=== PATIENT | female | born 1980 | race Caucasian/White ===

== ENCOUNTER 2024-08-01 14:00 | Inpatient (IN) | payer BC, OTHER ==
[~2024-08-01] VITALS: Ht 162.6 cm; Wt 87.7 kg
--- NOTE | 2024-08-01 14:38 | ECG ---
[facility] Test Date: 2024-08-01 Test Time: 14:13:32 Pat Name: ANUPAMA GOYAL Department: C Room: Gender: F Medical Imaging Technologist: FAZAL : 1980 Requested By: ARMAAN FLOWER Order Number: [id number] Reading MD: Measurements Intervals [place] Rate: 86 P: 56 [place]: 141 QRS: 47 QRSD: 96 T: 33 QT: 384 QTc: 460 Interpretive Statements Sinus rhythm Please click the below link to view image of tracing.
--- NOTE | 2024-08-01 15:01 | ED.PDOC ---
HPI Comments This is a 44-year-old female who comes in with chief complaint of chest pain. The patient states that this is the 1st time that she has had chest pain in the past but she has been having some palpitations. There has been no nausea, vomiting or diarrhea. She states that the chest pain is substernal and radiates towards the left side. Currently she is being worked up by her primary care doctor and she was referred to the chopper operator but has not seen a chopper operator at this time. At the clinic today, the patient was somewhat hypertensive and so they sent her to the emergency department's for evaluation. She is also complaining of a headache since Wednesday as well as some dizziness. She rates the chest pain as a 3/10. Chief Complaint: Chest Pain Time Seen by MD: 14:12 Reviewed Notes: Nurses Notes, Medications ( ), Allergies (PCN) Allergies: Coded Allergies: Penicillins (Verified Allergy, Unknown, 08/01/24) Information Source: Patient Mode of Arrival: Ambulatory Severity: Moderate Duration: Since onset Prehospital treatment: None Location: Substernal Radiation: Arm (L) Quality: Squeezing, Pressure Onset: At Rest Cardiac Risk Factors: Hyperlipidemia, HTN PE Risk Factors: None History of: None Modifying Factors: Nothing Associated Signs and Symptoms: SOB, Palpitations, Other (Headache as well as dizziness) Past Medical History PAST MEDICAL HISTORY: Gallstones, High Lipids, HTN Surgical History: Appendectomy, COST ACCOUNTING ANALYST History: No Pertinent COST ACCOUNTING ANALYST History Family History Family History: Family hx of Cancer Social History Smoker: Non-Smoker Alcohol: Denies ETOH Use Drugs: Denies Drug Use Lives In: Home Constitutional: denies: chills, diaphoresis, fatigue, fever, malaise, sweats, weakness, others EENTM: denies: blurred vision, double vision, ear bleeding, ear discharge, ear drainage, ear pain, ear ringing, eye pain, eye redness, hearing loss, mouth pain, mouth swelling, nasal discharge, nose bleeding, nose congestion, nose pain, photophobia, tearing, throat pain, throat swelling, voice changes, others Respiratory: reports: SOB at rest; denies: cough, hemoptysis, orthopnea, shortness of breath, SOB with excertion, stridor, wheezing, others Cardiovascular: reports: chest pain; denies: dizzy spells, diaphoresis, Dyspnea on exertion, edema, irregular heart beat, left arm pain, lightheadedness, palpitations, PND, syncope, others Gastrointestinal: denies: abdomen distended, abdominal pain, blood streaked bowels, constipated, diarrhea, dysphagia, difficulty swallowing, hematemesis, melena, nausea, poor appetite, poor fluid intake, rectal bleeding, rectal pain, vomiting, others Neurological: reports: dizziness, headache; denies: fainting, left sided numbness, left sided weakness, numbness, paresthesia, pre-existing deficit, right sided numbness, right sided weakness, seizure, speech problems, tingling, tremors, weakness, others Musculoskeletal: denies: back pain, gout, joint pain, joint swelling, muscle pain, muscle stiffness, neck pain, others Integumetry: denies: bruises, change in color, change in hair/nails, dryness, laceration, lesions, lumps, rash, wounds, others Allergic/Immunocompromised: denies: Difficulty Healing, Frequent Infections, Hives, Itching, others Hematologic/Lymphatic: denies: anemia, blood clots, easy bleeding, easy bru ising, swollen glands, others Endocrine: denies: excessive hunger, excessive sweating, excessive thirst, e xcessive urination, flushing, intolerance to cold, intolerance to heat, unexplained weight gain, unexplained weight loss, others Psychiatric: denies: anxiety, bipolar disorder, depression, hopeless, panic disorder, schizophrenia, sleepless, suicidal, others Physical Exam General Appearance: Moderate Distress HEENT: Normal ENT Inspection, Pharynx Normal, TMs Normal Neck: Full Range of Motion, Non-Tender, Normal, Normal Inspection Respiratory: Chest Non-Tender, Lungs Clear, No Accessory Muscle Use, No Respiratory Distress, Normal Breath Sounds Cardiovascular: No Edema, No JVD, No Murmur, No Gallop, Normal Peripheral Pu lses, Regular Rate/Rhythm Breast Exam: Deferred Gastrointestinal: No Organomegaly, Non Tender, No Pulsatile Mass, Normal Bowel Sounds, Soft Genitalia: Deferred Pelvic: Deferred Rectal: Deferred Extremities: No calf tenderness, Normal capillary refill, Normal inspection, Normal range of motion, Non-tender, No pedal edema Musculoskeletal : Apperance: Normal Neurologic: Alert, legal coordinator II-XII nml as Tested, No Motor Deficits, Normal Affect, Normal Mood, No Sensory Deficits Cerebellar Function: Normal Reflexes: Normal Skin: Dry, Normal Color, Warm Lymphatic: No Adenopathy EKG EKG : Pulse Rate (adult): 86 [place]: Normal Cardiac Rhythm: NSR Block: None ST: Nonsp Was a procedure done? Was a procedure done?: No CP Differential Dx Differential Diagnosis: Angina, [place], Pulmonary Embolus Differential Diagnosis: CHF Differential Diagnosis: Pericarditis X-Ray, Labs, Meds, VS Vital Signs Date Time Temp Pulse Resp B/P (MAP) Pulse Ox O2 Delivery O2 Flow Rate FiO2 08/01/24 17:15 86 08/01/24 15:19 93 08/01/24 14:35 98.1 94 19 174/97 (122) 99 08/01/24 14:13 86 Lab Test 08/01/24 15:10 08/01/24 14:22 Range/Units Troponin I High Sensitivity < 3 L < 3 L </=34 ng/L White Blood Count 8.5 4.4-10.8 10^3/uL Red Blood Count 4.55 4.0-5.20 10^6/uL Hemoglobin 13.3 12.2-16.2 g/dL Hematocrit 39.2 36.0-46.0 % Mean Corpuscular Volume 86.3 80.0-100.0 fL Mean Corpuscular Hemoglobin 29.3 28.0-32.0 pg Mean Corpuscular Hemoglobin Concent 34.0 32.0-36.0 g/dL Red Cell Distribution Width 13.8 11.8-14.3 % Platelet Count 363 140-450 10^3/uL Mean Platelet Volume 7.1 6.9-10.8 fL Neutrophils (%) (Auto) 60.7 37.0-80.0 % Lymphocytes (%) (Auto) 31.7 10.0-50.0 % Monocytes (%) (Auto) 4.9 0.0-12.0 % Eosinophils (%) (Auto) 1.7 0.0-7.0 % Basophils (%) (Auto) 1.0 0.0-2.0 % Neutrophils # (Auto) 5.1 1.6-8.6 10 ^3/uL Lymphocytes # (Auto) 2.7 0.4-5.4 10 ^3/uL Monocytes # (Auto) 0.4 0-1.3 10 ^3/uL Eosinophils # (Auto) 0.1 0-0.8 10 ^3/uL Basophils # (Auto) 0.1 0-0.2 10 ^3/uL Nucleated Red Blood Cells 0.1 % D-Dimer, Quantitative 0.36 0.0-0.49 mg/L FEU Sodium Level 138 136-145 mmol/L Potassium Level 4.0 3.5-5.1 mmol/L Chloride Level 107 98-107 mmol/L Carbon Dioxide Level 20 20-31 mmol/L Anion Gap 11 5-15 Blood Urea Nitrogen 11 9-23 mg/dL Creatinine 0.92 0.550-1.02 mg/dL Glomerular Filtration Rate Calc 78 >90 mL/min BUN/Creatinine Ratio 12.0 10.0-20.0 Serum Glucose 85 74-106 mg/dL Calcium Level 9.8 8.7-10.4 mg/dL Magnesium Level 2.1 1.6-2.6 mg/dL IV Hep-Lock was established. The patient was given aspirin here in the emergency department's The repeat EKG showed normal sinus rhythm at 83 NSR A cardiology consult will be obtained. At this time, the patient was being admitted to the hospitalist The troponin level x2 is negative thus far The CBC and chemistry panel are within normal limits We are concerned about the persistent chest pain so the patient will be admitted at this time Images Reviewed?: Images reviewed and evaluated by me Time of 1ST Reevaluation: 17:29 Reevaluation 1ST: Unchanged Patient Education/Counseling: Diagnosis, Treatment, Prognosis Family Education/Counseling: No Family Present Departure 1 Departure Time of Disposition: 17:29 Impression: Primary Impression: Acute coronary syndrome Disposition: 09 ADMITTED INPATIENT Admit to: [facility] Condition: Fair Critical Care Note Critical Care Time?: Yes (45 min-critical care time only) Stability Stability form required: Yes Unstable for transfer: Telemetry monitoring (Telemetry monitoring required), ED Physician Assesment (Clinical assesment) Heart Score Heart Score: Heart Score Response (Comments) Value History Moderate Suspicious 1 EKG Normal 0 Age 45-64 1 Risk Factors 1 or 2 risk factors 1 Troponin Normal limit 0 Total 3 ELZBIETA VELARDE MD Aug 01, 2024 15:01
[2024-08-01 15:03] LABS: Basophils # (auto) 0.1 10 ^3/uL (0-0.2); Eosinophils # (auto) 0.1 10 ^3/uL (0-0.8); Eosinophils % (auto) 1.7 % (0.0-7.0); Hematocrit 39.2 % (36.0-46.0); Hemoglobin 13.3 g/dL (12.2-16.2); Lymphocytes # (auto) 2.7 10 ^3/uL (0.4-5.4); Lymphocytes % (auto) 31.7 % (10.0-50.0); Mean Corpuscular Hemoglobin 29.3 pg (28.0-32.0); Mean Corpuscular Volume 86.3 fL (80.0-100.0); Monocytes # (auto) 0.4 10 ^3/uL (0-1.3); Monocytes % (auto) 4.9 % (0.0-12.0); Neutrophils # (auto) 5.1 10 ^3/uL (1.6-8.6); Neutrophils % (auto) 60.7 % (37.0-80.0); Nucleated Red Blood Cells % 0.1 %; Platelet Count (auto) 363 10^3/uL (140-450); Red Blood Cells 4.55 10^6/uL (4.0-5.20); Red Cell Distribution Width 13.8 % (11.8-14.3); White Blood Cell 8.5 10^3/uL (4.4-10.8)
--- NOTE | 2024-08-01 15:12 | DVH ---
CHEST RADIOGRAPH Indication: cp Technique: Frontal and lateral view of the chest was obtained Comparison: None FINDINGS: Lines and Tubes: None Lungs: Clear Pleura: No effusion. No pneumothorax. Cardiomediastinal contours: Unremarkable Bones: Unremarkable IMPRESSION: No evidence of acute disease.
[2024-08-01 15:53] LABS: Anion Gap 11 (5-15); Carbon Dioxide 20 mmol/L (20-31); Chloride 107 mmol/L (98-107); Sodium 138 mmol/L (136-145)
[2024-08-01 15:54] LABS: Calcium 9.8 mg/dL (8.7-10.4)
[2024-08-01 15:59] LABS: Blood Urea Nitrogen 11 mg/dL (9-23); Glucose 85 mg/dL (74-106); Magnesium 2.1 mg/dL (1.6-2.6)
[2024-08-01] MEDS: cloNIDine HCL 0.1 MG TAB PO ONE (18:42)
[2024-08-01] MEDS: ONDANSETRON HCL 4 MG/2 ML VIAL IV ONE (18:43)
[2024-08-01] MEDS: MORPHINE SULFATE 4 MG/ML SYR/VIAL IV ONE (18:43)
[2024-08-01] MEDS ORDERED: NITROGLYCERIN 0.4 MG SL TAB SL PRN (19:00)
[2024-08-01] MEDS ORDERED: MORPHINE SULFATE INJ 2 MG/ml SYRG IV PRN (19:00)
[2024-08-01] MEDS ORDERED: TEMAZEPAM 15 MG CAP PO PRN (19:00)
[2024-08-01] MEDS ORDERED: hydrALAZINE HCL 20 MG/ML VL IV PRN (19:00)
[2024-08-01] MEDS ORDERED: ONDANSETRON HCL 4 MG/2 ML VIAL IV PRN (19:00)
[2024-08-02] MEDS: ATORVASTATIN 20 MG TAB PO SCH (01:00)
[2024-08-02] MEDS: ACETAMINOPHEN 325 MG TAB PO PRN (01:00)
--- NOTE | 2024-08-02 03:43 | DVHHP2 ---
History of Present Illness Reason for Visit: Chest pain History of Present Illness 44-year-old female presents for evaluation of chest pain. Patient reports that since last week she has been having an occipital headache along with elevated blood pressure. She reports that yesterday she developed substernal nonradiating pressure-like chest pain. Denies shortness or breath, nausea or vomiting. Past Medical History Hypertension and dyslipidemia Past Surgical History and appendectomy Family History Cancer Smoke: No ALCOHOL: none Drugs: None Lives: with Family Review of Systems Review of Systems Review of systems are currently negative otherwise addressed in HPI. Allergies: Coded Allergies: Penicillins (Verified Allergy, Unknown, 08/01/24) Medications Current Medications Medications Dose Ordered Sig/Tiff Route Start Time Stop Time Status Last Admin Dose Admin Thyroid 30 mg DAILY PO 08/02/24 10:00 Losartan Potassium 50 mg DAILY PO 08/02/24 10:00 Atorvastatin Calcium 40 mg HS PO 08/01/24 22:00 08/02/24 01:00 40 MG Hydralazine HCl 10 mg Q6HP PRN IV 08/01/24 19:00 Temazepam 15 mg QHSP PRN PO 08/01/24 19:00 Ondansetron HCl 4 mg Q4HP PRN IV 08/01/24 19:00 Acetaminophen 650 mg Q6HP PRN PO 08/01/24 19:00 08/02/24 01:00 650 MG Nitroglycerin 0.4 mg Q5MINP PRN SL 08/01/24 19:00 Morphine Sulfate 2 mg Q30M PRN IV 08/01/24 19:00 Exam Vital Signs Vital Signs Date Time Temp Pulse Resp B/P (MAP) Pulse Ox O2 Delivery O2 Flow Rate FiO2 08/01/24 21:51 98.0 72 16 130/87 (101) 99 98.0 Exam Gen: 44-year-old female in mild distress Skin: Warm, dry, normal color and texture, no rash. HEENT: Normocephalic atraumatic, mucous membranes moist and pink. Neck: Cervical and supraclavicular nodes normal without enlargement, trachea is midline, thyroid gland is normal without masses. Pulmonary: Clear to auscultation and percussion bilaterally. Cardiac: Regular rate and rhythm. No murmur Abdomen: Soft, nontender, nondistended, bowel sounds present all 4 quadrants, no guarding, no rigidity, no organomegaly. Extremities: No cyanosis, clubbing, no edema Neuro: Cranial nerves II through XII grossly intact, normal affect and speech, no focal motor deficits. Labs/Xrays ORDERING PHYSICIAN: ELZBIETA VELARDE MD PROCEDURE(s): CXR2 - CHEST TWO VIEWS ROUTINE REASON: cp ORDER NUMBER(s): [id number], ACCESSION NUMBER(s): [id number] CHEST RADIOGRAPH Indication: cp Technique: Frontal and lateral view of the chest was obtained Comparison: None FINDINGS: Lines and Tubes: None Lungs: Clear Pleura: No effusion. No pneumothorax. Cardiomediastinal contours: Unremarkable Bones: Unremarkable IMPRESSION: No evidence of acute disease. Labs Test 08/01/24 15:10 08/01/24 14:22 Range/Units Troponin I High Sensitivity < 3 L </=34 ng/L White Blood Count 8.5 4.4-10.8 10^3/uL Red Blood Count 4.55 4.0-5.20 10^6/uL Hemoglobin 13.3 12.2-16.2 g/dL Hematocrit 39.2 36.0-46.0 % Mean Corpuscular Volume 86.3 80.0-100.0 fL Mean Corpuscular Hemoglobin 29.3 28.0-32.0 pg Mean Corpuscular Hemoglobin Concent 34.0 32.0-36.0 g/dL Red Cell Distribution Width 13.8 11.8-14.3 % Platelet Count 363 140-450 10^3/uL Mean Platelet Volume 7.1 6.9-10.8 fL Neutrophils (%) (Auto) 60.7 37.0-80.0 % Lymphocytes (%) (Auto) 31.7 10.0-50.0 % Monocytes (%) (Auto) 4.9 0.0-12.0 % Eosinophils (%) (Auto) 1.7 0.0-7.0 % Basophils (%) (Auto) 1.0 0.0-2.0 % Neutrophils # (Auto) 5.1 1.6-8.6 10 ^3/uL Lymphocytes # (Auto) 2.7 0.4-5.4 10 ^3/uL Monocytes # (Auto) 0.4 0-1.3 10 ^3/uL Eosinophils # (Auto) 0.1 0-0.8 10 ^3/uL Basophils # (Auto) 0.1 0-0.2 10 ^3/uL Nucleated Red Blood Cells 0.1 % D-Dimer, Quantitative 0.36 0.0-0.49 mg/L FEU Sodium Level 138 136-145 mmol/L Potassium Level 4.0 3.5-5.1 mmol/L Chloride Level 107 98-107 mmol/L Carbon Dioxide Level 20 20-31 mmol/L Anion Gap 11 5-15 Blood Urea Nitrogen 11 9-23 mg/dL Creatinine 0.92 0.550-1.02 mg/dL Glomerular Filtration Rate Calc 78 >90 mL/min BUN/Creatinine Ratio 12.0 10.0-20.0 Serum Glucose 85 74-106 mg/dL Calcium Level 9.8 8.7-10.4 mg/dL Magnesium Level 2.1 1.6-2.6 mg/dL Assessment/Plan Assessment/Plan Assessment Chest pain Accelerated hypertension Plan Admit the patient to telemetry to the hospitalist Cardiology consultation Head CT pending Resume home medications Continue treatment per orders. Plan discussed with: Patient My Orders Orders - DEVIN PARKER [facility] Procedure Category Date Status Time Thyroid ([place] PHA 08/02/24 In Process Thyroid) 10:00 Losartan Tablet PHA 08/02/24 In Process (Cozaar Tablet) 10:00 Atorvastatin (Lipitor) PHA 08/01/24 In Process 22:00 * Cardiology Consult CONS 08/01/24 Transmitted 18:51 Hydralazine Injection PHA 08/01/24 In Process (Apresoline Inject 19:00 Basic Metabolic Panel LAB 08/02/24 Logged 04:00 Admit ADMIT 08/01/24 Transmitted 18:51 Temazepam (Restoril) PHA 08/01/24 In Process 19:00 Ondansetron Hcl PHA 08/01/24 In Process (Zofran) 19:00 Complete Blood Count LAB 08/02/24 Logged 04:00 Cardiac DIET 08/02/24 Transmitted Diet-2gna,Lofat,Lochol Breakfast Echo 2d Mode Cardiac US 08/01/24 Logged DOP 18:51 Condition: Fair [facility] 08/01/24 In Process 18:51 Acetaminophen Tablet PHA 08/01/24 In Process (Tylenol Tablet) 19:00 Bedrest With Bathroom [facility] 08/01/24 In Process Privileg 18:51 Nitroglycerin PHA 08/01/24 In Process Sublingual (Ntrostat 19:00 Morphine Sulfate PHA 08/01/24 In Process Injection 19:00 Stat Ekg For Chest [facility] 08/01/24 In Process Pain 18:51 Notify Md Of Changes [facility] 08/01/24 In Process From Base 18:51 Ultrasound Applications Specialist For [facility] 08/01/24 In Process 24 Hours 18:51 Emergency Dysrhythmia [facility] 08/01/24 In Process Protocol 18:51 Rhythm Strips Once [facility] 08/01/24 In Process Every Shift 18:51 Oxygen By Nasal RT 08/01/24 Transmitted Cannula 18:51 Date of Service: Aug 01, 2024 Billing Provider: DEVIN PARKER Common Visit Codes: [id number] INP/OBS CARE (HIGH) DEVIN PARKER Aug 02, 2024 03:43
--- NOTE | 2024-08-02 04:46 | DVH ---
EXAM: CT HEAD WITHOUT CONTRAST INDICATION: Headache TECHNIQUE: CT of the head without intravenous contrast. Coronal and sagittal reformatted images are s ubmitted. Radiation Dose : 1. Head: CT Dose: CTDI volume is 54.14 mGy. Dose-length product is 867.9 mGy*cm The dose indicators for CT are the volume Computed Tomography (CT) Dose Index (CTDIvol) and the Dose Length Product (DLP), and are measured in units of mGy and mGy-cm, respectively. These indicators are not patient dose, but values generated from the CT scanner acquisition factors. The report includes radiation exposure data for exposures received during this examination. All CT scans at this medical facility are performed using dose modulation techniques as appropriate to a performed exam including the following: Automated exposure control was utilized; adjustment of the MA and/or KV according to patient size; and use of iterative reconstruction technique. COMPARISON: None FINDINGS: There is no evidence of acute intracranial hemorrhage, extra-axial collection, mass effect, midline s hift, herniation or hydrocephalus. The ventricles, sulci and cisterns are age appropriate. The clemente-white differentiation is intact. The visualized paranasal sinuses and mastoid air cells are clear. No depressed calvarial fracture. The surrounding soft tissues are unremarkable. IMPRESSION: 1. No evidence of acute intracranial abnormality.
[2024-08-02 06:31] LABS: Basophils # (auto) 0.1 10 ^3/uL (0-0.2); Basophils % (auto) 0.9 % (0.0-2.0); Eosinophils # (auto) 0.1 10 ^3/uL (0-0.8); Eosinophils % (auto) 1.4 % (0.0-7.0); Hematocrit 37.8 % (36.0-46.0); Hemoglobin 12.9 g/dL (12.2-16.2); Lymphocytes # (auto) 2.8 10 ^3/uL (0.4-5.4); Lymphocytes % (auto) 28.6 % (10.0-50.0); Mean Corpuscular Hemoglobin 29.3 pg (28.0-32.0); Mean Corpuscular Hgb Conc. 34.1 g/dL (32.0-36.0); Monocytes # (auto) 0.6 10 ^3/uL (0-1.3); Monocytes % (auto) 5.8 % (0.0-12.0); Neutrophils # (auto) 6.1 10 ^3/uL (1.6-8.6); Neutrophils % (auto) 63.3 % (37.0-80.0); Nucleated Red Blood Cells % 0.1 %; Platelet Count (auto) 319 10^3/uL (140-450); Red Blood Cells 4.39 10^6/uL (4.0-5.20); White Blood Cell 9.7 10^3/uL (4.4-10.8)
[2024-08-02 06:41] LABS: Chloride 107 mmol/L (98-107); Potassium 4.4 mmol/L (3.5-5.1); Sodium 138 mmol/L (136-145)
[2024-08-02 06:42] LABS: Anion Gap 6 (5-15); Carbon Dioxide 25 mmol/L (20-31)
[2024-08-02 06:43] LABS: Calcium 9.8 mg/dL (8.7-10.4)
[2024-08-02 06:47] LABS: BUN/Creatinine Ratio 11.3 (10.0-20.0); Blood Urea Nitrogen 11 mg/dL (9-23)
[2024-08-02 06:48] LABS: LDL Cholesterol 78 mg/dL (< 100)
[2024-08-02 06:49] LABS: Cholesterol 177 mg/dL (< 200)
[2024-08-02 06:50] LABS: HDL Cholesterol 73 mg/dL (40-59); Triglycerides 153 mg/dL (< 150)
[2024-08-02 06:59] VITALS: PULSE 72; RESP 18; O2SAT 98
[2024-08-02 07:06] LABS: Glucose 87 mg/dL (74-106)
--- NOTE | 2024-08-02 09:28 | DVHINCON2 ---
Date Seen: Aug 02, 2024 Referring Physician CASSANDRA Mckeon Reason for Consultation Chest pain History of Present Illness This is a pleasant 44-year-old female who presented to the emergency room with a chief complaint of palpitations since May and worsening during the past two weeks. Patient endorses she was found to be hypertensive at the end of May with losartan potassium therapy uptitrated from 25 mg to 50 mg. Last weekend she developed worsening palpitations associated with LOMELI, ringing of her ears, facial numbness, visual disturbance, and substernal/nonradiating/unprovoked chest pain prompting her to attend [facility] where she was found with a blood pressure of 203/118 mmHg. At that time, she was medicated with clonidine 0.1 mg x 1 and sent home on clonidine 0.1 mg prn for a BP of >160/90 mmHg. Upon arrival to the emergency room she was found with a SBP in the 170s mmHg. Reports compliance with medical therapy at home. Denies diaphoresis, dizziness, or syncopal events. She underwent multiple 12 lead electrocardiogram revealing a sinus rhythm with T-wave inversion to single lead V1 and no evidence of ST segment changes. Serial troponin levels are negative. Significant medical history includes hypertension, dyslipidemia, thyroid disease, cholelithiasis, and obesity. Past Medical History Past medical history reviewed. No other significant than mentioned above. Past Surgical History Appendectomy Right upper extremity Family History Family history reviewed. Significant for father with PVCs and paternal grandfather from massive MD in his 50s y.o. Social History Denies the use of illicit drugs, alcohol, or tobacco use. Denies the use of caffeinated or energy drinks. Allergies: Coded Allergies: Penicillins (Verified Allergy, Unknown, 08/01/24) Home Meds Home medications reviewed. Current Medications Current Medications Medications (Trade) Dose Ordered Sig/Tiff Route PRN Reason Start Time Stop Time Status Last Admin Thyroid ([place] Thyroid) 30 mg DAILY PO 08/02/24 10:00 Losartan Potassium (Cozaar Tablet) 50 mg DAILY PO 08/02/24 10:00 Atorvastatin Calcium (Lipitor) 40 mg HS PO 08/01/24 22:00 08/02/24 01:00 Hydralazine HCl (Apresoline Injection) 10 mg Q6HP PRN IV SBP>150 08/01/24 19:00 Temazepam (Restoril) 15 mg QHSP PRN PO FOR INSOMNIA 08/01/24 19:00 Ondansetron HCl (Zofran) 4 mg Q4HP PRN IV NAUSEA / VOMITING 08/01/24 19:00 Acetaminophen (Tylenol Tablet) 650 mg Q6HP PRN PO PAIN SCALE 1-3 OR TEMP>100.4 08/01/24 19:00 08/02/24 06:57 Nitroglycerin (Ntrostat Sublingual) 0.4 mg Q5MINP PRN SL FOR CHEST PAIN 08/01/24 19:00 Morphine Sulfate 2 mg Q30M PRN IV FOR CHEST PAIN 08/01/24 19:00 Review of Systems Constitutional: No symptom reported Ears, Nose, & Throat: No symptom reported Eyes: No symptom reported Neurological: No symptoms reported Pulmonary/Respiratory: No symptom reported Cardiovascular: Chest pain, palpitations Gastrointestinal: No symptom reported Genitourinary: No symptom reported Musculoskeletal: No symptom reported Skin: No symptom reported Psychiatric: No symptom reported Endocrine: No symptom reported Hemotologic/Lymphatic: No symptom reported Vital Signs Vital Signs Date Time Temp Pulse Resp B/P (MAP) Pulse Ox O2 Delivery O2 Flow Rate FiO2 08/02/24 06:59 98.4 72 18 124/80 (95) 98 98.4 08/02/24 06:59 Room Air* 0 21 Physical Exam General Appearance: Cooperative. Well developed. Well nourished. In no acute distress Head Exam: Normal inspection Neck Exam: Normal inspection. Non-tender. Normal alignment Pulmonary/Respiratory: Chest non-tender. Clear bilateral breath sounds Cardiovascular/Chest: Regular rate and rhythm. S1, S2. NSR. No murmurs. No JVD. Peripheral Pulses: 2+ Radial (R). 2+ Radial (L). 2+ Pedal (R). 2+ Pedal (L) Abdominal Exam: Normal bowel sounds. Soft. Nontender. No hepatospenomegaly. No masses Ankle Exam: Negative ankle edema Lower extremities: Negative lower extremity edema Neuro/Mental Status: A&O x4. Coherent Thoughts/Psych: Normal thought pattern. Appropriate mood and affect. Good judgement and insight Appearance: In no acute distress Skin Exam: Normal inspection. Normal color. Warm. Dry Labs/Diagnostic Data Labs Test 08/02/24 05:57 08/01/24 15:10 08/01/24 14:22 Range/Units White Blood Count 9.7 4.4-10.8 10^3/uL Red Blood Count 4.39 4.0-5.20 10^6/uL Hemoglobin 12.9 12.2-16.2 g/dL Hematocrit 37.8 36.0-46.0 % Mean Corpuscular Volume 86.0 80.0-100.0 fL Mean Corpuscular Hemoglobin 29.3 28.0-32.0 pg Mean Corpuscular Hemoglobin Concent 34.1 32.0-36.0 g/dL Red Cell Distribution Width 14.0 11.8-14.3 % Platelet Count 319 140-450 10^3/uL Mean Platelet Volume 6.9 6.9-10.8 fL Neutrophils (%) (Auto) 63.3 37.0-80.0 % Lymphocytes (%) (Auto) 28.6 10.0-50.0 % Monocytes (%) (Auto) 5.8 0.0-12.0 % Eosinophils (%) (Auto) 1.4 0.0-7.0 % Basophils (%) (Auto) 0.9 0.0-2.0 % Neutrophils # (Auto) 6.1 1.6-8.6 10 ^3/uL Lymphocytes # (Auto) 2.8 0.4-5.4 10 ^3/uL Monocytes # (Auto) 0.6 0-1.3 10 ^3/uL Eosinophils # (Auto) 0.1 0-0.8 10 ^3/uL Basophils # (Auto) 0.1 0-0.2 10 ^3/uL Nucleated Red Blood Cells 0.1 % Sodium Level 138 136-145 mmol/L Potassium Level 4.4 3.5-5.1 mmol/L Chloride Level 107 98-107 mmol/L Carbon Dioxide Level 25 20-31 mmol/L Anion Gap 6 5-15 Blood Urea Nitrogen 11 9-23 mg/dL Creatinine 0.97 0.550-1.02 mg/dL Glomerular Filtration Rate Calc 73 >90 mL/min BUN/Creatinine Ratio 11.3 10.0-20.0 Serum Glucose 87 74-106 mg/dL Calcium Level 9.8 8.7-10.4 mg/dL Triglycerides Level 153 H < 150 mg/dL Cholesterol Level 177 < 200 mg/dL LDL Cholesterol 78 < 100 mg/dL HDL Cholesterol 73 H 40-59 mg/dL Thyroid Stimulating Hormone (TSH) 6.38 H 0.55-4.78 uIU/mL Troponin I High Sensitivity < 3 L </=34 ng/L D-Dimer, Quantitative 0.36 0.0-0.49 mg/L FEU Magnesium Level 2.1 1.6-2.6 mg/dL Assessment Palpitations rule out cardiac arrhythmias Chest pain in the setting of hypertensive urgency Dyslipidemia Thyroid disease Obesity Plan/Recommendation (Dr. May) The patient with palpitations and chest pain in the setting of hypertensive urgency will undergo a transthoracic echocardiogram to rule out structural heart disease and has been admitted to telemetry to identify any cardiac arrhythmias. Twelve lead electrocardiograms did not display any evidence of ST segment rebekah nges, serial troponin levels are negative, and presents with a Heart Score of 2 placing the patient at a low-risk for major cardiac events. Continue aggressive blood pressure control. Continue ARB and add chlorthalidone therapy for a target SBP <140 mmHg. She can benefit from an outpatient event monitor and/or stress test in the setting of continuous palpitations with optimal blood pressures. States she has a referral for an initial evaluation with a primary digital pre press operator on upcoming weeks. Monitor ECG changes closely and notify. Thank you for allowing us to participate in this patient's care. Please call if you have any questions or concerns. This medical document was created using an electronic medical record system with voice recognition software and computerized dictation system. Although this document has been carefully reviewed, there might still be some phonetic and typographical errors. Occasional wrong-word or ``sound-alike substitutions may have occurred due to the inherent limitations of voice recognition software. These areas are purely typographical due to imperfections of the software programs and do not reflect any compromise in the patient's medical care. Please read the chart carefully and recognize, using context, where these substitutions have occurred. Plan discussed with: Patient, Other NYHA Physical activity limitations: NA Date of Service: Aug 02, 2024 Billing Provider: MADELYN BREWER Cardiology Common Codes: [id number] INP/OBS CARE (High) MADELYN BREWER Aug 02, 2024 09:28
--- NOTE | 2024-08-02 09:56 | ECG ---
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
[2024-08-02] MEDS: LOSARTAN POTASSIUM 50 MG TAB PO SCH (11:48)
[2024-08-02] MEDS: THYROID 60 MG TAB PO SCH (13:39)
[2024-08-02] MEDS ORDERED: CHLO25TA2 PO (17:29)
[2024-08-02] MEDS ORDERED: ASPI81CH74 PO (17:29)
[2024-08-02] MEDS ORDERED: LOSA-534 PO (17:29)
[2024-08-02] MEDS ORDERED: ATOR20TA50 PO (17:29)
[2024-08-02 18:18] VITALS: O2SAT 98
[2024-08-02 18:30] VITALS: BP 161/99; PULSE 83; RESP 18; TEMP 97.8; O2SAT 99
[2024-08-02 20:00] VITALS: PULSE 89; O2SAT 99
[2024-08-02 21:00] VITALS: BP 126/78; PULSE 80; RESP 18; TEMP 98.2; O2SAT 98
[2024-08-03 01:00] VITALS: BP 124/74; PULSE 78; RESP 18; TEMP 98.4; O2SAT 99
[2024-08-03 05:00] VITALS: BP 128/76; PULSE 64; RESP 18; TEMP 98.4; O2SAT 98
[2024-08-03 07:57] VITALS: O2SAT 99
[2024-08-03] MEDS: CHLORTHALIDONE 25 MG TAB PO SCH (08:35)
[2024-08-03 09:00] VITALS: BP 133/88; PULSE 86; RESP 17; TEMP 98.1; O2SAT 96
[2024-08-03] MEDS: LOSARTAN POTASSIUM 50 MG TAB PO SCH (09:46)
--- NOTE | 2024-08-03 10:30 | DVHSR ---
APPROVED REPORT EXAM: Two-dimensional and M-mode echocardiogram with Doppler and color Doppler. Blood Pressure: 124/80 mmHg INDICATION Chest Pain RISK FACTORS Height: 5' 4", Weight: 193 DIMENSIONS LVDd4.8 (3.8-5.7cm)LA (2D)3.9 (1.9-4.0cm)Aortic Root3.3 (2.0-3.7cm) LVDs2.9 (2.5-4.0cm)LA (MM) (1.9-4.0cm)Aortic Cusp Exc1.8 (1.5-2.0cm) EF (%) 70.0 (55-70%)Rt. Atrium3.7 (1.9-4.0cm)Asc. Aorta cm IVSd1.3 (0.7-1.1cm)RV (D) (1.8-2.4cm) PWd1.1 (0.7-1.1cm) Mitral Valve MitralMitral Stenosis E wave1.00m/sMV Mean GR.mmHg A wave1.00m/sMV Peak GR.mmHg E/A ratio1.02D MVAcm2 Aortic Valve Aortic ValveAortic Stenosis V10.90m/Rachael Mean GR.4mmHg V21.30m/Rachael Peak GR.8mmHg LVOT Diameter2.0 (1.8-2.4cm)Doppler AVA2.17cm2 Pulmonic Valve V20.60m/s Tricuspid Valve TR Velocity2.30m/s [id number] Conclusion Technically good study sinus rhythm. Left atrial enlargement. Valves are normal. EF is normal at 60% with normal RV function. Mild TR. No pericardial effusion masses or vegetations.
--- NOTE | 2024-08-03 15:58 | DVHDS2 ---
Discharge Summary Date of Admission Aug 01, 2024 at 18:51 Date of Discharge: Aug 03, 2024 Admitting Diagnosis Chest pain Labs/Diagnostic Data: Laboratory Results Test 08/02/24 05:57 08/01/24 15:10 08/01/24 14:22 White Blood Count 9.7 10^3/uL (4.4-10.8) Red Blood Count 4.39 10^6/uL (4.0-5.20) Hemoglobin 12.9 g/dL (12.2-16.2) Hematocrit 37.8 % (36.0-46.0) Mean Corpuscular Volume 86.0 fL (80.0-100.0) Mean Corpuscular Hemoglobin 29.3 pg (28.0-32.0) Mean Corpuscular Hemoglobin Concent 34.1 g/dL (32.0-36.0) Red Cell Distribution Width 14.0 % (11.8-14.3) Platelet Count 319 10^3/uL (140-450) Mean Platelet Volume 6.9 fL (6.9-10.8) Neutrophils (%) (Auto) 63.3 % (37.0-80.0) Lymphocytes (%) (Auto) 28.6 % (10.0-50.0) Monocytes (%) (Auto) 5.8 % (0.0-12.0) Eosinophils (%) (Auto) 1.4 % (0.0-7.0) Basophils (%) (Auto) 0.9 % (0.0-2.0) Neutrophils # (Auto) 6.1 10 ^3/uL (1.6-8.6) Lymphocytes # (Auto) 2.8 10 ^3/uL (0.4-5.4) Monocytes # (Auto) 0.6 10 ^3/uL (0-1.3) Eosinophils # (Auto) 0.1 10 ^3/uL (0-0.8) Basophils # (Auto) 0.1 10 ^3/uL (0-0.2) Nucleated Red Blood Cells 0.1 % Sodium Level 138 mmol/L (136-145) Potassium Level 4.4 mmol/L (3.5-5.1) Chloride Level 107 mmol/L (98-107) Carbon Dioxide Level 25 mmol/L (20-31) Anion Gap 6 (5-15) Blood Urea Nitrogen 11 mg/dL (9-23) Creatinine 0.97 mg/dL (0.550-1.02) Glomerular Filtration Rate Calc 73 mL/min (>90) BUN/Creatinine Ratio 11.3 (10.0-20.0) Serum Glucose 87 mg/dL (74-106) Hemoglobin A1c 5.2 % A1C (<5.7) Calcium Level 9.8 mg/dL (8.7-10.4) Triglycerides Level 153 mg/dL (< 150) Cholesterol Level 177 mg/dL (< 200) LDL Cholesterol 78 mg/dL (< 100) HDL Cholesterol 73 mg/dL (40-59) Thyroid Stimulating Hormone (TSH) 6.38 uIU/mL (0.55-4.78) Troponin I High Sensitivity < 3 ng/L (</=34) D-Dimer, Quantitative 0.36 mg/L FEU (0.0-0.49) Magnesium Level 2.1 mg/dL (1.6-2.6) Other Laboratory Tests 08/02/24 05:57 Brief Hx & Hospital Course: This is a pleasant 44-year-old female who presented to the emergency room with a chief complaint of palpitations since May and worsening during the past two weeks. Patient endorses she was found to be hypertensive at the end of May with losartan potassium therapy uptitrated from 25 mg to 50 mg. Last weekend she developed worsening palpitations associated with LOMELI, ringing of her ears, facial numbness, visual disturbance, and substernal/nonradiating/unprovoked chest pain prompting her to attend [facility] where she was found with a blood pressure of 203/118 mmHg. At that time, she was medicated with clonidine 0.1 mg x 1 and sent home on clonidine 0.1 mg prn for a BP of >160/90 mmHg. Upon arrival to the emergency room she was found with a SBP in the 170s mmHg. Reports compliance with medical therapy at home. Denies diaphoresis, dizziness, or syncopal events. She underwent multiple 12 lead electrocardiogram revealing a sinus rhythm with T-wave inversion to single lead V1 and no evidence of ST segment changes. Serial troponin levels are negative. Significant medical history includes hypertension, dyslipidemia, thyroid disease, cholelithiasis, and obesity. Patient underwent ECHO and seen in cardiology consult. Patient will need to see outpatient PCP and Cardiology. Patient advised to resume home Losartan 50mg PO daily. Patient advised to monitor blood pressure at home and record readings at home. Low Salt diet. Operations or Procedures EXAM: Two-dimensional and M-mode echocardiogram with Doppler and color Doppler. Blood Pressure: 124/80 mmHg INDICATION Chest Pain RISK FACTORS Height: 5' 4", Weight: 193 DIMENSIONS LVDd 4.8 (3.8-5.7cm) LA (2D) 3.9 (1.9-4.0cm) Aortic Root 3.3 (2.0- 3.7cm) LVDs 2.9 (2.5-4.0cm) LA (MM) (1.9-4.0cm) Aortic Cusp Exc 1.8 (1.5- 2.0cm) EF (%) 70.0 (55-70%) Rt. Atrium 3.7 (1.9-4.0cm) Asc. Aorta cm IVSd 1.3 (0.7-1.1cm) RV (D) (1.8-2.4cm) PWd 1.1 (0.7-1.1cm) Mitral Valve Mitral Mitral Stenosis E wave 1.00m/s MV Mean GR. mmHg A wave 1.00m/s MV Peak GR. mmHg E/A ratio 1.0 2D MVA cm2 Aortic Valve Aortic Valve Aortic Stenosis V1 0.90m/s AO Mean GR. 4mmHg V2 1.30m/s AO Peak GR. 8mmHg LVOT Diameter 2.0 (1.8-2.4cm) Doppler FOX 2.17cm2 Pulmonic Valve V2 0.60m/s Tricuspid Valve TR Velocity 2.30m/s RVSP 30mmHg Conclusion Technically good study sinus rhythm. Left atrial enlargement. Valves are normal. EF is normal at 60% with normal RV function. Mild TR. No pericardial effusion masses or vegetations. Condition at Discharge: Stable Final Diagnosis/Problems List Palpitations rule out cardiac arrhythmias Chest pain in the setting of hypertensive urgency Dyslipidemia HypoThyroid- Resume Meds Discharge Disposition: Home Discharge Instruct/Medications Diet: Cardiac 2g Na,low cholest (2 gm sodium, low cholesterol) Activity: Light activity Follow Up/Referral: PCP in 1 week Medications: Resume Home Meds Discharge Statement: "Patient was advised to return to the ER or call 911 if any headaches, dizziness, shortness of breath, chest pain, abdominal pain, bleeding, fevers, or worsening of medical condition. Patient was counseled about treatment plan, medications, possible side effects, patientverbalized understanding. All questions were answered to the best of my ability. This discharge took greater then 30 minutes in planning, reviewing documentation, counseling the patient, and discussing with other team members." ASSESSMENT ASSESSMENT Assessment Date of Service: Aug 03, 2024 Billing Provider: CE MONTZE MD Common Visit Codes: 98657-TJJ/OBS DISCH DAY >30min CE MONTEZ MD Aug 03, 2024 15:58
[2024-08-03 16:15] VITALS: BP 133/88; TEMP 36.7
== END 2024-08-03 16:40 | disposition home or self-care (01) | DRG 305 ==
LOC: ER 14:00 → OVERFLOW 18:51 → TELE-WESTW 08-02 18:17
PROVIDERS: ADMIT Internal Medicine; ATTEND Internal Medicine
DX: I16.0 Hypertensive urgency (principal); I24.9 Acute ischemic heart disease, unspecified; I49.9 Cardiac arrhythmia, unspecified; E78.5 Hyperlipidemia, unspecified; I10 Essential (primary) hypertension; E66.9 Obesity, unspecified; E03.9 Hypothyroidism, unspecified; Z88.0 Allergy status to penicillin; Z98.891 History of uterine scar from previous surgery; Z82.3 Family history of stroke; Z82.49 Family history of ischemic heart disease and other diseases of the circulatory system; Z68.33 Body mass index [BMI] 33.0-33.9, adult; Z79.899 Other long term (current) drug therapy
CPT/HCPCS: 36415; 70450; 71046; 80048; 80061; 83036; 83735; 84443; 84484; 85025; 85379; 93005; 93306; 96374; 96375; 99291; G0378; J2405